=== PATIENT | male | born 1990 | race Asian ===

== ENCOUNTER 2020-05-22 18:45 | Emergency (ER) | payer OTHER ==
[~2020-05-22] VITALS: Ht 170.2 cm; Wt 83.9 kg
[~2020-05-22 18:45] MED LIST: ESCI20 PO
== END 2020-05-22 19:50 | disposition left against medical advice (07) ==
LOC: ER 18:45
DX: R06.02 Shortness of breath (principal); Z53.21 Procedure and treatment not carried out due to patient leaving prior to being seen by health care provider
CPT/HCPCS: 99282